=== PATIENT | female | born 1975 | race African-American/Black ===

== ENCOUNTER 2018-10-21 21:01 | Emergency (ER) | payer MEDICAID, MEDICARE ==
[~2018-10-21] VITALS: Ht 177.8 cm; Wt 82.0 kg
[~2018-10-21 21:01] MED LIST: MICAR8; NIFE10CA; PRED10TA23; SIROLIMUS; TACROLIMUS; [UNRECOGNIZED DRUG - OTHER]
[2018-10-21] MEDS ORDERED: METHYLPREDNISOLONE SOD SUCC 125 MG/2 ML VIAL IV STA (22:37)
[2018-10-21] MEDS ORDERED: ACETAMINOPHEN WITH CODEINE 300/30MG TABLET PO ONE (23:30)
[2018-10-22 00:24] LABS: HEMATOCRIT. 40.5 % (36.0-48.0); MEAN CORPUSCULAR VOLUME 89.9 fL (81.0-99.0)
[2018-10-22 00:25] LABS: BASOPHILS % 0.2 % (0.0-2.0); LYMPHOCYTES % 17.4 % (20.0-50.0); MEAN PLATELET VOLUME 8.1 fl (7.4-10.4); MONOCYTES % 9.5 % (2.0-8.0); NEUTROPHILS % 72.9 % (40.0-76.0); PLATELET 349 x1000/uL (130-400); RED CELL DISTRIBUTION WIDTH 15.5 % (11.6-14.6)
[2018-10-22 00:30] LABS: CHLORIDE 110 mEq/L (98-107)
[2018-10-22 02:35] VITALS: BP 120/71
== END 2018-10-22 02:35 | disposition home or self-care (01) ==
LOC: ER 21:01
DX: M79.672 Pain in left foot (principal); I10 Essential (primary) hypertension; Z88.8 Allergy status to other drugs, medicaments and biological substances
CPT/HCPCS: 36415; 73630; 80053; 85025; 96374; 99284; J2930

== ENCOUNTER 2019-03-15 06:29 | Inpatient (IN) | payer MEDICAID ==
[~2019-03-15] VITALS: Ht 177.8 cm; Wt 97.1 kg
[2019-03-15] MEDS ORDERED: SODIUM CHLORIDE 0.9% 1,000 ML IV ONE (06:52)
[2019-03-15 08:08] LABS: BASOPHILS % 0.4 % (0.0-2.0); EOSINOPHILS % 1.5 % (0.0-5.0); HEMATOCRIT. 42.6 % (36.0-48.0); HEMOGLOBIN. 13.7 g/dL (12.0-16.0); LYMPHOCYTES % 18.5 % (20.0-50.0); MEAN CORPUSCULAR HEMOGLOBIN 29.4 pg (28.0-32.0); MEAN CORPUSCULAR VOLUME 91.4 fL (81.0-99.0); MEAN PLATELET VOLUME 7.7 fl (7.4-10.4); MONOCYTES % 14.2 % (2.0-8.0); NEUTROPHILS % 65.4 % (40.0-76.0); PLATELET 337 x1000/uL (130-400); RED BLOOD CELL COUNT 4.66 mill/uL (4.2-5.4); RED CELL DISTRIBUTION WIDTH 15.6 % (11.6-14.6)
[2019-03-15 08:14] LABS: CHLORIDE 111 mEq/L (98-107)
[2019-03-15 08:20] LABS: ETHANOL BLOOD < 10 mg/dL
[2019-03-15] MEDS ORDERED: DOCUSATE SODIUM 100MG CAPSULE PO PRN (09:30)
[2019-03-15] MEDS ORDERED: CLONIDINE 0.1MG TABLET PO PRN (09:30)
[2019-03-15] MEDS ORDERED: ONDANSETRON HCL 4MG/2ML INJ IV PRN (09:30)
[2019-03-15] MEDS ORDERED: DIPHENHYDRAMINE 50MG/ML VIAL IV PRN (09:30)
[2019-03-15] MEDS ORDERED: GUAIFENESIN 200MG/10ML SUGAR FREE UDC PO PRN (09:30)
[2019-03-15] MEDS ORDERED: METHYLPREDNISOLONE SOD SUCC 125 MG/2 ML VIAL IV ONE ×2 (09:30→09:45)
[2019-03-15] MEDS ORDERED: ACETAMINOPHEN 325MG TABLET PO PRN (09:30)
[2019-03-15] MEDS ORDERED: MAGNESIUM/ALUMINUM HYDROXIDE/SIMETHICONE 30ML UDC PO PRN (09:30)
[2019-03-15 09:49] LABS: PHOSPHORUS 2.4 mg/dL (2.5-4.9)
[2019-03-15] MEDS: HYDROCODONE/ACETAMINOPHEN 5/325MG TABLET PO PRN ×2 (10:05→17:04)
[2019-03-15 10:06] LABS: CLARITY URINE CLEAR (CLEAR); COLOR URINE YELLOW (YELLOW); KETONES URINE NEGATIVE (NEGATIVE); LEUKOCYTE ESTERASE URINE NEGATIVE (NEGATIVE); NITRITE URINE NEGATIVE (NEGATIVE); OCCULT BLOOD URINE NEGATIVE (NEGATIVE); PROTEIN URINE NEGATIVE (NEGATIVE); SPECIFIC GRAVITY URINE 1.022 (1.005-1.030); UROBILINOGEN URINE 0.2 E.U./dL (0.2-1.0)
[2019-03-15 10:22] LABS: OPIATES URINE SCREEN NEGATIVE (NEGATIVE); PHENCYCLIDINE URINE SCREEN NEGATIVE (NEGATIVE)
[2019-03-15 10:23] LABS: *AMPHETAMINES SCREEN URINE NEGATIVE (NEGATIVE); *BARBITURATES SCREEN URINE NEGATIVE (NEGATIVE); *BENZODIAZEPINES SCREEN URINE NEGATIVE (NEGATIVE); *COCAINE SCREEN URINE NEGATIVE (NEGATIVE); CANNABINOID URINE SCREEN NEGATIVE (NEGATIVE); METHADONE URINE SCREEN NEGATIVE (NEGATIVE)
[2019-03-15 10:55] VITALS: BP 151/103
[2019-03-15 13:00] VITALS: BP 141/83
[2019-03-15] MEDS: ENOXAPARIN 40MG/0.4ML SYR SUBCUT SCH (13:56)
[2019-03-15] MEDS ORDERED: PRED-431 PO (14:48)
[2019-03-15] MEDS ORDERED: FOLI0.4T2 MT (14:48)
[2019-03-15] MEDS ORDERED: OMEG100016 PO (14:48)
[2019-03-15] MEDS ORDERED: CALC-1042 MT (14:48)
[2019-03-15] MEDS ORDERED: TACR0.5C MT (14:48)
[2019-03-15] MEDS ORDERED: AMLO5TAB88 PO (14:48)
[2019-03-15] MEDS ORDERED: COPAJ SUBCUT (14:48)
[2019-03-15] MEDS ORDERED: VITA-137 MT (14:48)
[2019-03-15] MEDS ORDERED: NON FORMULARY PATIENT HOME MED XX SCH (15:15)
[2019-03-15] MEDS: AMLODIPINE 5MG TABLET PO SCH ×2 (15:15→16:55)
[2019-03-15 16:31] VITALS: BP 124/71
[2019-03-15 16:35] VITALS: BP 124/71
[2019-03-15] MEDS: CALCIUM CARBONATE 500MG TABLET CHEW PO SCH (16:55)
[2019-03-15] MEDS: FOLIC ACID 1MG TABLET PO SCH (16:56)
[2019-03-15] MEDS: THIAMINE HCL 100MG TABLET PO SCH (16:56)
[2019-03-15 20:00] VITALS: BP 157/84
[2019-03-15] MEDS: TACROLIMUS 1MG CAPSULE PO SCH (21:13)
[2019-03-15] MEDS ORDERED: ASPI-1158 PO (21:17)
[2019-03-15] MEDS ORDERED: MYCO500T PO (21:17)
[2019-03-15] MEDS ORDERED: MYCO250C PO (21:17)
[2019-03-15] MEDS: MYCOPHENOLATE MOFETIL 250MG CAPSULE PO SCH (21:52)
[2019-03-16] VITALS (7 sets, daily range): BP systolic 102–173; BP diastolic 50–105
[2019-03-16 00:41] LABS: CREATINE KINASE 50 IU/L (26-192)
[2019-03-16 00:42] LABS: CREATINE KINASE MB FRACTION < 1.0 ng/mL (0.5-3.6)
[2019-03-16] MEDS ORDERED: AMLODIPINE 5MG TABLET PO SCH (01:00)
[2019-03-16 06:53] LABS: BASOPHILS % 0.1 % (0.0-2.0); HEMATOCRIT. 39.8 % (36.0-48.0); HEMOGLOBIN. 12.9 g/dL (12.0-16.0); LYMPHOCYTES % 9.3 % (20.0-50.0); MEAN CORPUSCULAR HEMOGLOBIN 29.2 pg (28.0-32.0); MEAN CORPUSCULAR VOLUME 90.5 fL (81.0-99.0); MEAN PLATELET VOLUME 8.2 fl (7.4-10.4); MONOCYTES % 7.4 % (2.0-8.0); NEUTROPHILS % 83.2 % (40.0-76.0); PLATELET 337 x1000/uL (130-400); RED CELL DISTRIBUTION WIDTH 15.3 % (11.6-14.6)
[2019-03-16 07:38] LABS: CHLORIDE 112 mEq/L (98-107)
[2019-03-16 07:48] LABS: LDL CHOLESTEROL 53 mg/dL (5-100)
[2019-03-16 07:49] LABS: HDL CHOLESTEROL 95 mg/dL (40-59)
[2019-03-16] MEDS: THIAMINE HCL 100MG TABLET PO SCH (09:29)
[2019-03-16] MEDS: CALCIUM CARBONATE 500MG TABLET CHEW PO SCH ×2 (09:29→19:00)
[2019-03-16] MEDS: FOLIC ACID 1MG TABLET PO SCH (09:30)
[2019-03-16] MEDS: AMLODIPINE 5MG TABLET PO SCH (09:30)
[2019-03-16] MEDS: TACROLIMUS 0.5 MG CAPSULE PO SCH (09:37)
[2019-03-16] MEDS: MYCOPHENOLATE MOFETIL 500MG TABLET PO SCH (09:37)
[2019-03-16] MEDS: ENOXAPARIN 40MG/0.4ML SYR SUBCUT SCH (14:08)
[2019-03-16] MEDS: TACROLIMUS 1MG CAPSULE PO SCH (21:18)
[2019-03-16] MEDS: MYCOPHENOLATE MOFETIL 250MG CAPSULE PO SCH (21:18)
[2019-03-17] VITALS: BP 126/60
[2019-03-17 04:00] VITALS: BP 130/67
[2019-03-17 06:47] LABS: BASOPHILS % 0.2 % (0.0-2.0); EOSINOPHILS % 0.5 % (0.0-5.0); HEMATOCRIT. 36.3 % (36.0-48.0); LYMPHOCYTES % 24.9 % (20.0-50.0); MEAN CORPUSCULAR HEMOGLOBIN 30.2 pg (28.0-32.0); MONOCYTES % 10.9 % (2.0-8.0); NEUTROPHILS % 63.5 % (40.0-76.0); PLATELET 310 x1000/uL (130-400); RED BLOOD CELL COUNT 3.99 mill/uL (4.2-5.4); RED CELL DISTRIBUTION WIDTH 15.4 % (11.6-14.6)
[2019-03-17 08:00] VITALS: BP 128/78
[2019-03-17] MEDS: THIAMINE HCL 100MG TABLET PO SCH (08:21)
[2019-03-17] MEDS: CALCIUM CARBONATE 500MG TABLET CHEW PO SCH ×2 (08:21→17:50)
[2019-03-17] MEDS: MYCOPHENOLATE MOFETIL 500MG TABLET PO SCH (08:21)
[2019-03-17] MEDS: FOLIC ACID 1MG TABLET PO SCH (08:21)
[2019-03-17] MEDS: TACROLIMUS 0.5 MG CAPSULE PO SCH (08:21)
[2019-03-17] MEDS: AMLODIPINE 5MG TABLET PO SCH (08:26)
[2019-03-17] MEDS: HYDROCODONE/ACETAMINOPHEN 5/325MG TABLET PO PRN (10:06)
[2019-03-17] MEDS: ENOXAPARIN 40MG/0.4ML SYR SUBCUT SCH (10:11)
[2019-03-17 12:25] VITALS: BP 100/70
[2019-03-17 16:20] VITALS: BP 106/66
[2019-03-17 17:44] VITALS: BP 128/72
== END 2019-03-17 18:35 | disposition home or self-care (01) | DRG 43 ==
LOC: ER 06:29 → 6WST 08:58 → EDBEDREQ 09:02 → ENRESERV 09:54 → 6WST 10:52
PROVIDERS: ADMIT Internal Medicine; ATTEND Internal Medicine
DX: G35 Multiple sclerosis (principal); M32.9 Systemic lupus erythematosus, unspecified; G89.4 Chronic pain syndrome; I10 Essential (primary) hypertension; G82.50 Quadriplegia, unspecified; W18.39XA Other fall on same level, initial encounter; M21.70 Unequal limb length (acquired), unspecified site; Z94.0 Kidney transplant status; Z88.1 Allergy status to other antibiotic agents; Z88.8 Allergy status to other drugs, medicaments and biological substances; Z79.82 Long term (current) use of aspirin; Z79.899 Other long term (current) drug therapy; Y93.89 Activity, other specified; Y92.098 Other place in other non-institutional residence as the place of occurrence of the external cause; Y99.8 Other external cause status; Z82.49 Family history of ischemic heart disease and other diseases of the circulatory system; Z87.81 Personal history of (healed) traumatic fracture
CPT/HCPCS: 36415; 70551; 71045; 72141; 80048; 80061; 80197; 80305; 80320; 82140; 82550; 82553; 83036; 83605; 83735; 84100; 84484; 93005; 93970; 96361; 96374; 97116; 97162; 97165; 97530; 99285; J1650; J2930; J7030; J7507; J7517; G0480